=== PATIENT | female | born 1985 | race Caucasian/White ===

== ENCOUNTER 2018-04-22 23:11 | Inpatient (IN) | payer OTHER ==
[~2018-04-22] VITALS: Ht 165.1 cm; Wt 61.7 kg
[2018-04-22] MEDS ORDERED: RINGERS SOLUTION,LACTATED 1,000 ML IV PRN (23:34)
[2018-04-22] MEDS ORDERED: OXYTOCIN 30 UNITS/LACT RINGERS 500 ML IV ONE (23:34)
[2018-04-22] MEDS ORDERED: FentaNYL CITRATE-PF 100 MCG/2 ML VIAL IVP PRN (23:45)
[2018-04-22] MEDS ORDERED: OXYGEN THERAPY IH SCH (23:45)
[2018-04-22] MEDS ORDERED: CITRIC ACID/SODIUM CITRATE 30 ML SOLUTION UDCUP PO PRN (23:45)
[2018-04-22] MEDS ORDERED: METOCLOPRAMIDE HCL 5 MG/ML 2 ML VIAL IVP PRN (23:45)
[2018-04-23] MEDS ORDERED: ROPIVACAINE HCL/PF 0.2% 100 ML ED ONE (00:07)
[2018-04-23 00:08] LABS: BASOPHILS % (AUTO) 1.1 % (0.0-2.0); EOSINOPHILS % (AUTO) 0.3 % (1.0-6.0); HEMATOCRIT 39.8 % (36-46); HEMOGLOBIN 13.5 g/dL (12.0-16.0); LYMPHOCYTES % (AUTO) 15.2 % (22.0-44.0); MEAN CORPUSCULAR HEMOGLOBIN 31.2 pg (26.0-34.0); MEAN CORPUSCULAR HGB CONC 33.9 G/dL (31.0-37.0); MEAN CORPUSCULAR VOLUME 92 fL (80-100); MONOCYTES # (AUTO) 0.6 K/uL (0.1-1.0); NEUTROPHILS # (AUTO) 10.1 K/uL (1.8-7.7); NEUTROPHILS % (AUTO) 78.4 % (40.0-70.0); PLATELET COUNT (AUTO)-OB 102 K/uL (150-450); RED BLOOD CELL COUNT(AUTO) 4.32 MIL/uL (4.00-5.20); RED CELL DISTRIBUTION WIDTH 12.8 % (11.5-14.5)
[2018-04-23] MEDS ORDERED: PREN1TAB80 PO (00:09)
[2018-04-23 00:18] VITALS: BP 121/77
[2018-04-23] MEDS: RINGERS SOLUTION,LACTATED 1,000 ML IV SCH ×2 (00:27→02:46)
[2018-04-23] MEDS ORDERED: CeFAZolin 2 GM/DEXTROSE 50 ML IV ONE (02:15)
[2018-04-23] MEDS ORDERED: ACETAMINOPHEN/CODEINE 300-30 MG TABLET PO PRN ×2 (02:45)
[2018-04-23] MEDS ORDERED: GLYCERIN/WITCH HAZEL LEAF 40 PADS JAR TP PRN (02:45)
[2018-04-23] MEDS ORDERED: BENZOCAINE 20%/MENTHOL 56 GM SPRAY CANISTER TP PRN (02:45)
[2018-04-23] MEDS ORDERED: LANOLIN 7 GM OINTMENT TP PRN (02:45)
[2018-04-23] MEDS: IBUPROFEN 800 MG TABLET PO SCH ×4 (04:49→23:58)
[2018-04-23] MEDS: MAGNESIUM HYDROXIDE SUSPENSION 30 ML UDCUP PO SCH ×2 (09:03→21:06)
[2018-04-24] MEDS: IBUPROFEN 800 MG TABLET PO SCH ×2 (05:59→11:58)
[2018-04-24] MEDS: MAGNESIUM HYDROXIDE SUSPENSION 30 ML UDCUP PO SCH (09:01)
[2018-04-24] MEDS ORDERED: IBUP-2071 PO (10:13)
[2018-04-24] MEDS ORDERED: DSS100 PO (10:14)
== END 2018-04-24 12:20 | disposition home or self-care (01) | DRG 775 ==
LOC: 4S 23:11 → OBSVTOIN 23:11 → 4S 23:12 → PREINTOOBSV 05-19 23:23
PROVIDERS: ADMIT Obstetrics & Gynecology; ATTEND Obstetrics & Gynecology
PROC: 10D07Z6 Extraction of Products of Conception, Vacuum, Via Natural or Artificial Opening (ICD-10-PCS; principal; 2018-04-23)
PROC: 0W8NXZZ Division of Female Perineum, External Approach (ICD-10-PCS; 2018-04-23)
PROC: 3E0R3BZ Introduction of Anesthetic Agent into Spinal Canal, Percutaneous Approach (ICD-10-PCS; 2018-04-23)
PROC: 00HU33Z Insertion of Infusion Device into Spinal Canal, Percutaneous Approach (ICD-10-PCS; 2018-04-23)
DX: O77.0 Labor and delivery complicated by meconium in amniotic fluid (principal); Z37.0 Single live birth; Z3A.38 38 weeks gestation of pregnancy
CPT/HCPCS: 86850; 86900; 86901; J0690; J2590; J2795; J3010; J7120